=== PATIENT | female | born 1960 | race African-American/Black ===

== ENCOUNTER 2019-01-28 15:57 | Emergency (ER) | payer SELFPAY ==
[~2019-01-28] VITALS: Ht 165.1 cm; Wt 61.0 kg
[2019-01-28] MEDS ORDERED: SODIUM CHLORIDE 0.9% 1,000 ML IV ONE ×2 (16:32→17:45)
[2019-01-28] MEDS ORDERED: LORAZEPAM 2MG/ML CPJ IM PRN (16:45)
[2019-01-28] MEDS ORDERED: HALOPERIDOL LACTATE 5MG/ML VIAL IM ONE (17:00)
[2019-01-28 17:10] LABS: BASOPHILS % 0.7 % (0.0-2.0); EOSINOPHILS % 0.7 % (0.0-5.0); HEMOGLOBIN. 12.1 g/dL (12.0-16.0); LYMPHOCYTES % 41.8 % (20.0-50.0); MEAN CORPUSCULAR VOLUME 95.1 fL (81.0-99.0); MEAN PLATELET VOLUME 6.3 fl (7.4-10.4); MONOCYTES % 8.2 % (2.0-8.0); NEUTROPHILS % 48.6 % (40.0-76.0); PLATELET 211 x1000/uL (130-400); RED BLOOD CELL COUNT 3.79 mill/uL (4.2-5.4); RED CELL DISTRIBUTION WIDTH 14.1 % (11.6-14.6)
[2019-01-28 17:17] LABS: CHLORIDE 92 mEq/L (98-107)
[2019-01-28 17:38] LABS: ETHANOL BLOOD 366 mg/dL
[2019-01-29 06:25] VITALS: BP 145/73
== END 2019-01-29 06:43 | disposition home or self-care (01) ==
LOC: EDBD 15:57 → ER 15:57
DX: F10.129 Alcohol abuse with intoxication, unspecified (principal); Y90.9 Presence of alcohol in blood, level not specified
CPT/HCPCS: 36415; 80053; 80320; 85025; 96372; 99283; J1630; J2060; J7030; G0480

== ENCOUNTER 2019-02-26 23:19 | Emergency (ER) | payer SELFPAY ==
[~2019-02-26] VITALS: Ht 165.1 cm; Wt 47.0 kg
[2019-02-27] MEDS ORDERED: ACETAMINOPHEN 325MG TABLET PO ONE (01:15)
[2019-02-27 01:37] LABS: BASOPHILS % 1.4 % (0.0-2.0); EOSINOPHILS % 0.8 % (0.0-5.0); HEMATOCRIT. 34.7 % (36.0-48.0); HEMOGLOBIN. 11.5 g/dL (12.0-16.0); LYMPHOCYTES % 38.4 % (20.0-50.0); MEAN CORPUSCULAR HEMOGLOBIN 32.3 pg (28.0-32.0); MEAN CORPUSCULAR VOLUME 97.7 fL (81.0-99.0); MEAN PLATELET VOLUME 6.3 fl (7.4-10.4); MONOCYTES % 13.9 % (2.0-8.0); NEUTROPHILS % 45.5 % (40.0-76.0); PLATELET 259 x1000/uL (130-400); RED BLOOD CELL COUNT 3.55 mill/uL (4.2-5.4); RED CELL DISTRIBUTION WIDTH 14.9 % (11.6-14.6)
[2019-02-27 01:40] LABS: CHLORIDE 97 mEq/L (98-107)
[2019-02-27 07:30] VITALS: BP 106/75
== END 2019-02-27 08:29 | disposition home or self-care (01) ==
LOC: ER 23:19
DX: R25.2 Cramp and spasm (principal)
CPT/HCPCS: 36415; 73130; 99284

== ENCOUNTER 2019-02-28 15:28 | Emergency (ER) | payer SELFPAY | END 2019-02-28 18:01 | disposition left against medical advice (07) | LOC: ER 15:28 | DX: Z53.21 Procedure and treatment not carried out due to patient leaving prior to being seen by health care provider (principal) ==

== ENCOUNTER 2019-03-02 01:07 | Emergency (ER) | payer MEDICAID ==
[~2019-03-02] VITALS: Ht 170.2 cm; Wt 48.9 kg
[2019-03-02] MEDS ORDERED: IBUPROFEN 800MG TABLET PO ONE (03:15)
[2019-03-02 03:21] VITALS: BP 114/94
== END 2019-03-02 03:58 | disposition home or self-care (01) ==
LOC: ER 01:07
DX: G89.29 Other chronic pain (principal); M79.641 Pain in right hand; M79.10 Myalgia, unspecified site; M54.9 Dorsalgia, unspecified
CPT/HCPCS: 99282

== ENCOUNTER 2019-03-02 19:44 | Emergency (ER) | payer MEDICAID ==
[~2019-03-02] VITALS: Ht 154.9 cm; Wt 56.0 kg
[2019-03-02] MEDS ORDERED: IBUPROFEN 800MG TABLET PO ONE (21:00)
[2019-03-03 06:05] VITALS: BP 138/72
== END 2019-03-03 07:15 | disposition left against medical advice (07) ==
LOC: ER 20:09
DX: M79.641 Pain in right hand (principal); M54.6 Pain in thoracic spine; Z59.0 Homelessness; F17.200 Nicotine dependence, unspecified, uncomplicated
CPT/HCPCS: 73130; 99283

== ENCOUNTER 2019-03-03 18:49 | Emergency (ER) | payer MEDICAID ==
[~2019-03-03] VITALS: Ht 154.9 cm; Wt 56.0 kg
[2019-03-03] MEDS ORDERED: NAPHAZOLINE HCL/PHENIR MAL OPHTH SOLN 15ML BOTHEYE PRN (20:15)
[2019-03-03] MEDS ORDERED: LORAZEPAM 0.5MG TABLET PO ONE (20:15)
[2019-03-03] MEDS ORDERED: CETIRIZINE 10MG TABLET PO SCH (20:15)
[2019-03-03] MEDS ORDERED: LORAZEPAM 0.5MG TABLET PO NR (20:45)
[2019-03-04 02:30] VITALS: BP 118/68
== END 2019-03-04 06:42 | disposition home or self-care (01) ==
LOC: ER 18:49
DX: J30.9 Allergic rhinitis, unspecified (principal); M24.541 Contracture, right hand; F17.210 Nicotine dependence, cigarettes, uncomplicated
CPT/HCPCS: 99284; Z7610

== ENCOUNTER 2019-03-16 18:39 | Emergency (ER) | payer MEDICAID ==
[~2019-03-16] VITALS: Ht 167.6 cm; Wt 57.0 kg
[2019-03-16] MEDS ORDERED: DIPHENHYDRAMINE HCL/ZINC ACET 28 GM CREAM TOP ONE (21:00)
[2019-03-17] VITALS: BP 115/52
== END 2019-03-17 05:03 | disposition left against medical advice (07) ==
LOC: ER 18:39
DX: L29.8 Other pruritus (principal); F17.200 Nicotine dependence, unspecified, uncomplicated; Z59.0 Homelessness
CPT/HCPCS: 99283

== ENCOUNTER 2019-04-03 19:36 | Emergency (ER) | payer SELFPAY ==
[~2019-04-03] VITALS: Ht 172.7 cm; Wt 66.0 kg
[2019-04-04 00:05] VITALS: BP 118/75
[2019-04-04] MEDS ORDERED: ACETAMINOPHEN 325MG TABLET PO ONE (01:15)
== END 2019-04-04 01:39 | disposition home or self-care (01) ==
LOC: ER 19:36
DX: R21 Rash and other nonspecific skin eruption (principal); L29.9 Pruritus, unspecified; R03.0 Elevated blood-pressure reading, without diagnosis of hypertension
CPT/HCPCS: 99282

== ENCOUNTER 2019-04-25 00:32 | Emergency (ER) | payer SELFPAY ==
[~2019-04-25] VITALS: Ht 170.2 cm; Wt 55.0 kg
[2019-04-25] MEDS ORDERED: KETOROLAC 60MG/2ML VIAL IM STA (04:06)
[2019-04-25 04:30] LABS: CHLORIDE 104 mEq/L (98-107)
[2019-04-25 04:33] LABS: BASOPHILS % 1.2 % (0.0-2.0); EOSINOPHILS % 1.6 % (0.0-5.0); ETHANOL BLOOD 214 mg/dL; HEMATOCRIT. 36.2 % (36.0-48.0); HEMOGLOBIN. 12.2 g/dL (12.0-16.0); LYMPHOCYTES % 44.8 % (20.0-50.0); MEAN CORPUSCULAR HEMOGLOBIN 32.8 pg (28.0-32.0); MEAN CORPUSCULAR VOLUME 96.9 fL (81.0-99.0); MEAN PLATELET VOLUME 6.2 fl (7.4-10.4); MONOCYTES % 7.6 % (2.0-8.0); NEUTROPHILS % 44.8 % (40.0-76.0); PLATELET 304 x1000/uL (130-400); RED BLOOD CELL COUNT 3.74 mill/uL (4.2-5.4); RED CELL DISTRIBUTION WIDTH 14.5 % (11.6-14.6)
[2019-04-25 06:24] VITALS: BP 129/77
== END 2019-04-25 06:47 | disposition home or self-care (01) ==
LOC: ER 00:32
DX: M24.541 Contracture, right hand (principal)
CPT/HCPCS: 36415; 73130; 80048; 80320; 85025; 96372; 99284; J1885; G0480